=== PATIENT | male | born 1970 | race Caucasian/White ===

== ENCOUNTER 2024-04-29 11:55 | Emergency (ER) | payer MEDICAID ==
[~2024-04-29] VITALS: Ht 180.3 cm; Wt 79.5 kg
[2024-04-29 11:56] VITALS: TEMP 98.5
[2024-04-29] MEDS ORDERED: INSU100V SQ (12:05)
[2024-04-29] MEDS ORDERED: MIRT-89 PO (12:05)
[2024-04-29] MEDS ORDERED: METF-1211 PO (12:05)
[2024-04-29] MEDS ORDERED: GABA-1216 PO (12:05)
[2024-04-29] MEDS ORDERED: ATOR10TA PO (12:05)
[2024-04-29] MEDS ORDERED: INSU100I26 SQ (12:05)
[2024-04-29] MEDS ORDERED: LISI-892 PO (12:05)
[2024-04-29] MEDS ORDERED: BUPR-344 PO (12:05)
[2024-04-29] MEDS ORDERED: DICY20TA95 PO (12:50)
[2024-04-29 12:55] VITALS: BP 117/74; PULSE 98; RESP 18; O2SAT 98
== END 2024-04-29 13:07 | disposition home or self-care (01) ==
LOC: EMS 11:59
DX: S80.212A Abrasion, left knee, initial encounter (principal); E11.43 Type 2 diabetes mellitus with diabetic autonomic (poly)neuropathy; E11.65 Type 2 diabetes mellitus with hyperglycemia; K31.84 Gastroparesis; E78.00 Pure hypercholesterolemia, unspecified; I10 Essential (primary) hypertension; F12.90 Cannabis use, unspecified, uncomplicated; Z98.890 Other specified postprocedural states; Z79.4 Long term (current) use of insulin; Z88.8 Allergy status to other drugs, medicaments and biological substances; W22.8XXA Striking against or struck by other objects, initial encounter; Y93.89 Activity, other specified; Y92.89 Other specified places as the place of occurrence of the external cause; Y99.8 Other external cause status
CPT/HCPCS: 82962; 99283; 99284